=== PATIENT | male | born 1980 | race African-American/Black ===

== ENCOUNTER → 2016-09-14 | Outpatient (CLI) | payer OTHER ==
[~2016-09-14] MED LIST: OMNICEF 300MG300 MG PO; ZOFRAN ODT4 MG PO
== END ==
LOC: COL.RAD 09:37
DX: M51.26 Other intervertebral disc displacement, lumbar region (principal); D75.89 Other specified diseases of blood and blood-forming organs; G89.29 Other chronic pain